=== PATIENT | male | born 1935 | race Caucasian/White ===

== ENCOUNTER → 2016-10-24 | Outpatient (CLI) | payer MEDICARE, BC ==
[~2016-10-24] MED LIST: 0.9% SODIUM CHLO3 ML; ALBUTEROL2.5 MG/0.5 INH; B-COMPLEX PO; BYSTOLIC5 MG PO; CARDURA2 MG PO; COQ-10100 MG PO; COUMADIN ** IA5 MG PO; COUMADIN**IA 06/5 MG PO; COUMADIN7.5 MG PO; CPAP INH; CREON 121 CAP PO; CUBICIN (NON-F500 MG IV/PO; D3-20002000 UNIT PO; DIGESTIVE PROB1 EACH PO; DULERA 200 MCG/51 EA INH; FISH OIL 1,2001 EAC2 PO; FLAREX5 ML OPHTH; FOLIC ACID 40400 MCG PO; K-TAB 10MEQ10 MEQ PO; K-TAB ER20 MEQ PO; LASIX20 MG PO; LEVOTHROID (S200 MCG PO; LIPITOR80 MG PO; LUMIGAN 0.01%2.5 ML OPHTH; LUTEIN-ZEAXANT1 EACH PO; MAXI TEARS OPHTH; MUCINEX600 MG PO; OCUVITE SOFTGE1 EACH PO; OXYGEN M-15 INH; PANCRELIPASE D1 EACH PO; PANCRELIPASE PO; PLAVIX75 MG PO; PROAIR RESPICL90 MCG INH; PROTONIX40 MG PO; PROVENTIL2.5 MG/0.5 INH; ROCEPHIN2 G1 IV; SPIRIVA HANDIHA1 KIT INH; STOP INH; SYMBICORT 16010.2 GM INH; THERAGRAN-M1 TAB PO; VITAMIN C500 M2 PO; [UNRECOGNIZED DRUG - OTHER] OPHTH
[2016-10-24 12:55] LABS: BASOPHIL # 0.1 K/uL (0.0-0.2); BASOPHIL % 1.1 %; EOSINOPHIL # 0.1 K/uL (0.0-0.5); HEMATOCRIT 39.2 % (37.0-53.0); HEMOGLOBIN 12.8 g/dL (11.0-16.0); IMMATURE GRANULOCYTE % 0.4 %; LYMPHOCYTE # 0.7 K/uL (0.8-4.0); LYMPHOCYTE % 15.5 %; MCHC 32.7 gm/dL (32.0-36.5); MCV 94.9 fl (83.0-98.0); MONOCYTE # 0.5 K/uL (0.0-1.0); MONOCYTE % 10.2 %; MPV 9.2 fl (9.4-12.4); NEUTROPHIL # (ANC) 3.2 K/uL (1.4-9.0); NEUTROPHIL % 70.8 %; NRBC % 0 /100WBC (0-0.00); PLATELET COUNT 665 K/uL (150-450); RBC 4.13 M/uL (3.50-5.50); RDW-CV 15.8 % (11.9-14.6); WBC 4.5 K/uL (4.0-11.0)
[2016-10-24 13:12] LABS: ALBUMIN 3.3 gm/dL (3.5-5.0); ANION GAP 9.9 (10.0-19.0); CALCIUM 7.8 mg/dL (8.5-10.5); CREATININE 0.8 mg/dL (0.6-1.3); POTASSIUM 3.9 mMol/L (3.7-5.1); TOTAL BILIRUBIN 0.4 mg/dL (0.0-1.5); TOTAL PROTEIN 6.5 g/dL (6.0-8.4)
== END | disposition disaster alternative care site (69) ==
LOC: LNHI 12:37
PROVIDERS: Internal Medicine Cardiovascular Disease
DX: I48.0 Paroxysmal atrial fibrillation (principal)

== ENCOUNTER 2016-11-02 05:19 | Inpatient (IN) | payer MEDICARE, BC ==
[~2016-11-02] VITALS: Ht 177.8 cm; Wt 124.8 kg
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
--- NOTE | ~2016-11-02 | DS ---
PATIENT'S NAME: KALI KIDD [facility] AGE: 81 Y [address] ROOM: [id number], [place] [address] LOCATION: [facility] ADMIT DATE: 11/02/2016 Discharge Summary DISCHARGE DATE: 11/06/2016 FAMILY PHYSICIAN: Physician, Unknown ATTENDING PHYSICIAN: Carson Knight REASON FOR ADMISSION: Chills, history of recurrent bacteremia and concern for same. ADMISSION DIAGNOSIS: Escherichia coli bacteremia. SECONDARY DIAGNOSES: 1. Left lower extremity cellulitis, presumable Staph aureus. 2. Acute urinary retention. 3. Chronic obstructive pulmonary disease. 4. Obstructive sleep apnea, on 2 L home oxygen at night. 5. Atrial fibrillation, anticoagulated. 6. History of deep venous thrombosis, pulmonary embolism. 7. Insulin-dependent diabetes type 2. 8. History of pancreatic mass, status post Whipple. 9. Essential hypertension. 10. Hypothyroidism. 11. 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 PENDING LABS AND TESTS: At the time of discharge, final culture results from [facility], sensitivities pending on E. coli at the time of discharge as well as weekly CMP while on ceftriaxone to follow up with PCP. HOSPITAL COURSE: This is a very pleasant 81-year-old male with notable history for multiple recent episodes of bacteremia and occasionally involving heart valves, status post 3 episodes of long-term antibiotics within the past 3 years, who presented to his outside hospital with complaints of chills and concern for yet another episode of bacteremia/endocarditis. Blood cultures were drawn at an outside facility, and the patient was started on antibiotics prior to being transferred to [facility]. This was after having presented to the ER and found to have blood pressures low in the 80s with heart rates in the 110s consistent with sepsis. He was given vancomycin, Zosyn, and Levaquin as well as IV fluid bolus prior to transfer here. Upon arrival, the patient from a hemodynamic standpoint was markedly improved with normotensive range blood pressures and improved tachycardia. Initial lactate 1.7, white count is 19.9. Further infectious workup did note chest x-ray without significant consolidation. Urinalysis also was largely unremarkable. Repeat blood cultures were drawn here, and remained no growth to date. On November 06, 2016, we received notification that the patient had developed PATIENT'S NAME: KALI KIDD [facility] AGE: 81 Y [address] [place]: [id number] [address] LOCATION: [facility] ADMIT DATE: 11/02/2016 Discharge Summary DISCHARGE DATE: 11/06/2016 FAMILY PHYSICIAN: Physician, Unknown ATTENDING PHYSICIAN: Carson Knight positive blood cultures for gram-negative rods and subsequently E. coli, which prompted ID consultation. The patient had been maintained on linezolid largely for concern of history of MRSA for left lower extremity cellulitis, which up until the time of positive blood cultures was deemed to be the sole responsible reason for sepsis. However, this rapidly improved within one day of hospital stay. There was no associated warmth or redness, and this was deemed to be fully treated at the time of discharge. Linezolid was discontinued on at request of Infectious Diseases in favor of ceftriaxone 2 g IV q.24 hours to be continued for 2 weeks for bacteremia. The patient did undergo transthoracic echocardiogram during his stay, which did not show any acute valvular abnormalities or regurgitation, however, this was notably a difficult study. Given the E. coli in blood stream and not atypical bacteria for valvular involvement, a transesophageal echo was not requested. Remainder of chronic medical conditions largely without complication during stay including COPD, atrial fibrillation, diabetes, and hypertension. Of note, the patient did require Dela Cruz briefly for urinary retention, which had improved at the time of discharge, but may warrant further evaluation by PCP upon followup. No obvious source of E. coli bacteremia was identified, however, must raise concern for GI source especially given history of Whipple procedure. There was no evidence of intraabdominal infection by exam or ongoing systemic infection by lab parameters, so this was not aggressively pursued during stay. However, if recurrence of sepsis does occur, we would recommend a CT abdomen to rule out abscess or other anatomical predisposition for E. coli bacteremia. MEDICATIONS AND PERTINENT CHANGES: Only notable for addition of ceftriaxone. FINGERNAIL SCULPTURER: Dr. Wright with ID. CONDITION: On the date of discharge, last vital signs prior to discharge, temperature 97.6, pulse 60, respirations 20, blood pressure 159/69, saturating 95% on room air. PHYSICAL EXAM ON DATE OF DISCHARGE: Please see last progress note, however, is notable for complete resolution of warmth and redness around the site of presumed cellulitis of left lateral lower extremity and absence of heart murmur. DISPOSITION: The patient will be discharged home to follow up with daily IV infusion of antibiotics at his home hospital for the following 2 weeks. No restrictions on diet or activity. Time spent on date of discharge including direct patient care and coordination of discharge activities 40 minutes. PATIENT'S NAME: KALI KIDD [facility] AGE: 81 Y [address] ROOM: [place] [address] LOCATION: [facility] ADMIT DATE: 11/02/2016 Discharge Summary DISCHARGE DATE: 11/06/2016 FAMILY PHYSICIAN: Physician, Unknown ATTENDING PHYSICIAN: Carson Knight MD DWAIN RUANO/modl /[id number] d: 11/07/16 0228 t: 11/07/16 1104, DISCHARGE SUMMARY
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
--- NOTE | ~2016-11-02 | ECHO ---
Transthoracic Echocardiography Report (TTE) Demographics Patient Name KALI KIDD Date of Study 11/03/2016 Patient Number [id number] Visit Number [id number] Date of 1935 Room Number Q7613XD Accession Number [id number] Gender Male Age 81 year(s) Referring Rick Whyte Insole And Outsole Preparer Viktoriya Dewey RVT Physician MD Antonia Staton MD Physician [facility] Phys[facility] Shira LIM Supervising Ordering Physician Rick Whyte MD/MATT LIM Nurse Stress Datapower Developer Conclusions Contractility Score Summary Normal Left Ventricular contractility was noted. Summary The estimated left ventricular ejection fraction is 60-65% with normal internal dimension and WM.Mild concentric left ventricular hypertrophy. Mild LA dilatation. Mildly dilated right ventricle. The right atrium is mildly dilated. Moderate to severe calcification of the mitral valve. Trivial mitral regurgitation by color Doppler. The aortic valve was not well imaged. The aortic valve is mildly sclerotic. Procedure Type of Study TTE procedure:2D Echocardiogram. Procedure Date Date: 11/03/2016 Start: 12:26 PM Study Location: Inpatient Portable Technical Quality: Limited visualization due to poor acoustical window. Additional Indications:rule out vegetation Appropriate Use Criteria: 9 Patient Status: Routine HR: 72 bpm BP: 176/88 mmHg Allergies - Other:(Sulfa, Trimethoprim). M-Mode/2D Measurements LV Diastolic Dimension: 4.21 cm LV Systolic Dimension: 2.94 cm LV Septum Diastolic: 1.39 cm LV PW Diastolic: 1.45 cm AO Root Dimension: 2.8 cm Cardiac Output: 4.82 l/min AV Cusp Separation: 2 cm LVOT: 2 cm RV Base: 3.31 cm LVOT VTI: 21.3 cm RV Mid: 3.56 cm LV Stroke volume: 66.88 ml TAPSE: 1.63 cm TDI-S': 14.1 cm/s Doppler Measurements AV Peak Velocity: 2.08 m/s MV Peak E-Wave: 1.32 m/s AV Peak Gradient: 17.31 mmHg MV Peak A-Wave: 1.57 m/s AV Mean Gradient: 8 mmHg MV E/A Ratio: 0.84 LVOT Peak Velocity: 1.11 m/s MV P1/2t: 76 msec PV Peak Velocity: 1.02 m/s E' Septal Velocity: 0.06 m/s PV Peak Gradient: 4.16 mmHg E' Lateral Velocity: 0.08 m/s A' Septal Velocity: 0.09 m/s A' Lateral Velocity: 0.12 m/s Findings Left Ventricle Mild concentric left ventricular hypertrophy with normal internal dimension,EF and WM. Right Ventricle Mildly dilated right ventricle with normal function. Left Atrium Mildly dilated LA. Increased LA pressures. Right Atrium The right atrium is mildly dilated. IVC measures 1.52 cm with inspiratory collapse. Mitral Valve Moderate to severe calcification of the mitral valve. Trivial mitral regurgitation by color Doppler. Aortic Valve The aortic valve was not well imaged. The aortic valve is mildly sclerotic. Tricuspid Valve Normal tricuspid valve structure and function. Pulmonic Valve Normal pulmonic valve structure and function. Pericardial Effusion No evidence of pericardial effusion. Miscellaneous Visualized portions of the aortic root and ascending aorta appear normal in size. Pleural Effusion No evidence of pleural effusion. Contractility Score LV regional wall motion:(0-Non visualized 1-Normal 2-Hypokinesis 3-Akinesis 4-Dyskinesis 5-Aneurysm) Signature dtt: Shira Arias dtd: 11/03/16 1226 Physician Self Edit
--- NOTE | ~2016-11-02 | CON ---
PATIENT'S NAME: GLYNN KIDD [facility] AGE: 81 Y [address] ROOM: [place] [address] LOCATION: GICU ADMIT DATE: 11/02/2016 Consultation DISCHARGE DATE: 11/06/2016 FAMILY PHYSICIAN: Physician, Unknown ATTENDING PHYSICIAN: Carson Knight DATE OF CONSULTATION: 11/06/2016 REASON FOR CONSULTATION: Recurrent bacteremias. SUBJECTIVE: Glynn is a pleasant 81-year-old male, whom I was asked to see today in consultation by Dr. Carson Knight for further evaluation and treatment recommendations regarding recurrent bacteremia. Interestingly, I saw Glynn back in 2014 for bacteremia with an enterococcus species. He was noted to have had prior bacteremias with E coli, presumably from a urinary tract infection. Since that time, he has had 2 more episodes of bacteremia, I believe with E coli, though the originating source was unknown. He was treated for these in [place]. One day prior to admission, he had onset of fever and chills and was admitted from the emergency room in [place]. Blood cultures in [place] show E coli from both sets, susceptibilities pending. Cultures here have been negative. He showed some signs of sepsis here on admission, but improved rapidly. He was initially on intravenous vancomycin, Zosyn, and levofloxacin. 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 At the time of his previous infection for which I treated him, he did have significant elevation of liver enzymes, and this was felt to be likely due to cholangitis. His current liver enzyme pattern is unremarkable. Also of note, he did have some minor trauma to his left anterior tibial area. It was reportedly erythematous prior to admission, but it has improved. PAST MEDICAL HISTORY: As above, also type 2 diabetes, COPD, hypertension, hypothyroidism, obstructive sleep apnea, prior DVT and pulmonary embolism, atrial fibrillation, and possible endocarditis in 2014. ALLERGIES: BACTRIM. CURRENT MEDICATIONS: PATIENT'S NAME: GLYNN KIDD [facility] AGE: 81 Y [address] ROOM: [place] [address] LOCATION: GICU ADMIT DATE: 11/02/2016 Consultation DISCHARGE DATE: 11/06/2016 FAMILY PHYSICIAN: Physician, Unknown ATTENDING PHYSICIAN: Carson Knight See the MAR for complete listing. Current antibiotic is linezolid. SOCIAL HISTORY: He is a former smoker and stopped many years ago. No significant alcohol abuse. FAMILY HISTORY: Significant for COPD and colon cancer. REVIEW OF SYSTEMS: A complete review of systems was carried out and was remarkable only as noted. Please refer to the admission history and physical on 11/02/2016 for details. OBJECTIVE: GENERAL: He appears pleasant, comfortable, and is in no distress. VITAL SIGNS: Temperature is 36.4, blood pressure 166/73, and pulse 65. HEENT: Posterior pharynx clear. No adenopathy or thyromegaly. Cranial nerves are intact. NECK: Supple. CHEST: Clear to auscultation. CARDIOVASCULAR: Irregular rhythm without S3 or murmur. ABDOMEN: Soft and nontender, without hepatosplenomegaly or masses. EXTREMITIES: There is a very minor abrasion in the left anterior tibial area without an open wound. NEUROLOGIC: Strength and sensation intact. PSYCHIATRIC: Behavior and affect appropriate. LABORATORY DATA: Creatinine 0.7. Liver function tests normal. White count 6.7. MICROBIOLOGY: Blood cultures x2 from [place] on 11/02/2016 show E coli, both sets. Blood cultures x2 here show no growth to date. Urine culture on 11/02/2016 shows no growth to date. Left leg swab shows methicillin-susceptible Staphylococcus aureus. RADIOLOGY: Chest x-ray on 11/02/2016 shows no acute findings. IMPRESSION: Recurrent bacteremias, generally with gram-negative bacteria, but Enterococcus casseliflavus on one occasion with a question of endocarditis. Please refer to my notes from that consult for further details. The origin of his current bacteremia is unclear. He did have 5 to 10 white cells on urinalysis here, but did not have urinary symptoms. He had a rather traumatic attempt at PATIENT'S NAME: GLYNN KIDD [facility] AGE: 81 Y [address] [id number] [id number] LOCATION: [facility] ADMIT DATE: 11/02/2016 Consultation DISCHARGE DATE: 11/06/2016 FAMILY PHYSICIAN: Physician, Unknown ATTENDING PHYSICIAN: Carson Knight catheterization prior to transfer here, apparently. There is also the possibility of cholangitis, which was suggested by liver enzyme elevations in 2015. His liver enzymes here are normal, however. With his prior Whipple procedure, this is a distinct possibility. In any event, as he has had about 6 or possibly more episodes of serious bacteremia, I think it is reasonable to consider going on chronic long-term antibiotic prophylaxis. Depending upon the susceptibilities of the current E coli, which are pending, I would consider either amoxicillin or cefadroxil. He does have a sulfa allergy, it should be noted. He could take amoxicillin 875 mg daily or cefadroxil 500 mg daily for chronic suppression. We will stop linezolid at this time and transition over to ceftriaxone. This may need to be adjusted if the organism is not sensitive. We can see him back on a p.r.n. basis at any time. Thank you for the consultation. I am available to discuss the case by phone at [phone]. MD SNOW FARIA/filomena /[id number] CC: Carson Knight MD d: 11/06/16 1850 t: 11/07/16 0834, CONSULTATION REPORT
[~2016-11-02 05:19] MED LIST changes: -COQ-10100 MG PO; -CREON 121 CAP PO; -DIGESTIVE PROB1 EACH PO; -MAXI TEARS OPHTH; -PANCRELIPASE PO; -PLAVIX75 MG PO; -ROCEPHIN2 G1 IV; -[UNRECOGNIZED DRUG - OTHER] OPHTH
[2016-11-02 07:18] LABS: BICARBONATE 29.6 mmol/L (18.0-23.0); PCO2 50 mmHg (35-45); PO2 73 mmHg (80-90)
--- NOTE | 2016-11-02 07:22 | NUR ---
PATIENT ARRIVED TO UNIT AT 0600 PER CART BY JUAN RAMON WITH AT BEDSIDE. PRESENTED TO THE [facility] WIHT C/O CHILLS THEN HOT AND SHAKES. WHILE AT FACILITY PATIENTS TEMP INCREASED TO 103.3-TYLENOL GIVEN. HISTORY OF HTN, COPD, AND SEPSIS OF UNKNOWN ORIGIN. PATIENT WAS SHORT OF BREATH ON ARRIVAL-2L OF O2 PER NC. LEVO, ZOSYN, AND VANCO GIVEN AT [facility]. STOOD WITH 1A AND GB. HYPOTENSIVE. OUTSIDE FACILITY ATTEMPTED CRYSTAL CATH UNABLE TO PLACE-DOES HAVE BLOOD CLOTS AND LIGHT LEYDA URINE. SOB- 0/10-72-95% 2L- 97.9 (O)-98/56 MAP 76. BRENNAN TERAN
[2016-11-02 07:41] LABS: HEMATOCRIT 38.4 % (37.0-53.0); HEMOGLOBIN 12.4 g/dL (11.0-16.0); MCH 30.9 pg (27.0-34.0); MCHC 32.3 gm/dL (32.0-36.5); MCV 95.8 fl (83.0-98.0); PLATELET COUNT 766 K/uL (150-450); RBC 4.01 M/uL (3.50-5.50); RDW-CV 15.9 % (11.9-14.6); WBC 19.9 K/uL (4.0-11.0)
[2016-11-02 08:01] LABS: ANION GAP 11.2 (10.0-19.0); CALCIUM 7.7 mg/dL (8.5-10.5); POTASSIUM 4.2 mMol/L (3.7-5.1); TOTAL PROTEIN 6.4 g/dL (6.0-8.4)
[2016-11-02 08:02] LABS: TOTAL BILIRUBIN 0.6 mg/dL (0.0-1.5)
[2016-11-02 08:05] LABS: ABSOLUTE NEUTROPHIL CT (ANC) 18.3 K/uL (1.4-9.0); BANDED NEUTROPHIL # 3.4 K/uL (0.0-0.1); BANDED NEUTROPHILS % 17 %; LYMPHOCYTE # 0.6 K/uL (0.8-4.0); LYMPHOCYTE % 3 %; MONOCYTE # 0.8 K/uL (0.0-1.0); SEGMENTED NEUTROPHIL # 14.9 K/uL (1.4-9.0); SEGMENTED NEUTROPHIL % 75 %
[2016-11-02 08:43] LABS: INR - (THERAPEUTIC) 2.72 (0.92-1.07); PROTIME 28.9 SECONDS (9.8-11.4)
[2016-11-02 08:45] LABS: BILIRUBIN URINE NEGATIVE (NEGATIVE); BLOOD URINE 250 /UL (NEGATIVE); COLOR URINE YELLOW (YELLOW); GLUCOSE URINE NEGATIVE (NEGATIVE); KETONE URINE NEGATIVE (NEGATIVE); LEUKOCYTES URINE 100 /UL (NEGATIVE); NITRITE URINE NEGATIVE (NEGATIVE); PROTEIN URINE 30 mg/dL (NEGATIVE); SPEC GRAVITY URINE 1.015 (1.003-1.035); TURBIDITY URINE 3+ (CLEAR); UROBILINOGEN URINE NORMAL (NORMAL)
[2016-11-02 09:27] LABS: BACTERIA URINE FEW (NEGATIVE); EPITHELIAL URINE 0-2 #/HPF (NEGATIVE); RBC URINE FULL FIELD #/HPF (NEGATIVE)
[2016-11-02] MEDS ORDERED: BYSTOLIC5 MG PO (11:54)
[2016-11-02] MEDS ORDERED: PLAVIX75 MG PO (11:56)
[2016-11-02] MEDS ORDERED: COQ-10100 MG PO (11:57)
[2016-11-02] MEDS ORDERED: DIGESTIVE PROB1 EACH PO (12:00)
[2016-11-02] MEDS ORDERED: [UNRECOGNIZED DRUG - OTHER] OPHTH (12:08)
[2016-11-02] MEDS ORDERED: MAXI TEARS OPHTH (12:15)
--- NOTE | 2016-11-02 17:10 | NUR ---
Significant Event: A&O. VSS, AFEBRILE, ON 1L O2. SATS MID-HIGH 90'S BUT FEELS SHORT OF BREATH. AUDIBLE UPPER AIRWAY WHEEZE. OFF LEVOPHED. NS AT 75 ML/HR TO L)FA. R)FA SL. COMPLAINT OF PAINFUL URINATION, REPORT OF 4 ATTEMPTS AT CATHETER INSERTION AT OUTSIDE FACILITY. VOIDING SMALL AMOUNTS, BLADDER SCAN SHOWED 461 ML. 2 BOWEL MOVEMENTS. ACCUCHEK ACHS WITH CARB COUNT.
--- NOTE | 2016-11-03 05:14 | NUR ---
Significant Event: Patient this shift has been alert and oriented x3. Follows commands. PERRLA. Equal strong strength. VSS. Afebrile. Denies HOOD, n/t, or BV. SB-SR-keep map > 65. BLE pulses are thready- 2+ edema. 1L O2 per NC. CPAP at NOC. ADA diet-with carb count- ACCU checks ACHS. Last BM 11/02-active. ABD is round/distended-normal. 1A GB. Drsg to left forehead-C/D/I. Left medial johnson-open sore-covered with band-aid. L) and R) PIV- NS and IV antibiotics. Follow up: Eye gtts from . Change to NTU status?
[2016-11-03 05:30] LABS: BASOPHIL # 0.1 K/uL (0.0-0.2); BASOPHIL % 0.7 %; EOSINOPHIL # 0.2 K/uL (0.0-0.5); EOSINOPHIL % 1.8 %; HEMATOCRIT 37.4 % (37.0-53.0); HEMOGLOBIN 11.8 g/dL (11.0-16.0); IMMATURE GRANULOCYTE # 0.1 K/uL (0.0-0.3); IMMATURE GRANULOCYTE % 0.6 %; LYMPHOCYTE # 0.9 K/uL (0.8-4.0); MCH 30.2 pg (27.0-34.0); MCHC 31.6 gm/dL (32.0-36.5); MCV 95.7 fl (83.0-98.0); MONOCYTE # 0.8 K/uL (0.0-1.0); MONOCYTE % 7.2 %; MPV 8.9 fl (9.4-12.4); NEUTROPHIL # (ANC) 8.5 K/uL (1.4-9.0); NEUTROPHIL % 80.7 %; NRBC % 0 /100WBC (0-0.00); PLATELET COUNT 631 K/uL (150-450); RBC 3.91 M/uL (3.50-5.50); RDW-CV 16.3 % (11.9-14.6); WBC 10.5 K/uL (4.0-11.0)
[2016-11-03 05:46] LABS: INR - (THERAPEUTIC) 3.08 (0.92-1.07); PROTIME 32.7 SECONDS (9.8-11.4)
[2016-11-03 05:48] LABS: ANION GAP 10.8 (10.0-19.0); CALCIUM 7.7 mg/dL (8.5-10.5); CREATININE 0.8 mg/dL (0.6-1.3); POTASSIUM 3.8 mMol/L (3.7-5.1); TOTAL BILIRUBIN 0.6 mg/dL (0.0-1.5); TOTAL PROTEIN 6.3 g/dL (6.0-8.4)
[2016-11-03 09:25] LABS: INR - (THERAPEUTIC) 3.09 (0.92-1.07); PROTIME 32.8 SECONDS (9.8-11.4)
--- NOTE | 2016-11-03 19:23 | NUR ---
Significant Event: PT A&Ox3, FAC, PEREZ. VSS with the exception of elevated pressures, HR, and bigeminal PVCs prior to urinary catheterization. PT c/o fullness, tension, and pain in the lower abdomen. A 16Fr indwelling mcdonough was inserted; 3725mL out. SBP 140-200; HR 70s-90s. Follow up: Continue monitoring urine output and vital signs.
--- NOTE | 2016-11-03 22:27 | NUR ---
Significant Event: Patient alert and oriented x3. Up with one assist and gaitbelt. Ambulated in halls. Dyspenic on exertion and requested 1 liter oxygen to be placed. Other vitals stable, afebrile. Sinus rhythm with bundle branch block. Edema to bilateral lower extremities. Bandaid changed to small open area on left anterior leg. Antibiotics running through left forearm IV with no complications. Dela Cruz. Pleasant/cooperative with cares Follow up: remind to bring in advanced directive
--- NOTE | 2016-11-04 04:46 | NUR ---
Significant Event: Patient is alert and oriented X3. Follows commands. PERRLA. VSS. Afebrile. Denies HOOD, N/T, or pain. Equal strong strength throughout. SB-SR with BBB. Pulses are thready BLE- 2+ edema. 1-2L O2 per NC or CPAP. Diabetic diet with carb counting. Takes pills whole with water. Last BM 8/-active x4- does belch when up and walking. 1A with GB. Dela Cruz cath in place-1125 out/clear-does have drainage from the urethra and is tender. Band-aid to the left forehead and left johnson- C/D/I. L)FA PIV- infusing zosyn. Follow up: Continue to monitor.
[2016-11-04 06:24] LABS: BASOPHIL # 0.1 K/uL (0.0-0.2); BASOPHIL % 0.9 %; EOSINOPHIL # 0.2 K/uL (0.0-0.5); EOSINOPHIL % 2.8 %; HEMATOCRIT 38.2 % (37.0-53.0); HEMOGLOBIN 12.6 g/dL (11.0-16.0); IMMATURE GRANULOCYTE % 0.5 %; LYMPHOCYTE # 0.7 K/uL (0.8-4.0); LYMPHOCYTE % 8.7 %; MCH 30.9 pg (27.0-34.0); MCV 93.6 fl (83.0-98.0); MONOCYTE # 0.7 K/uL (0.0-1.0); MONOCYTE % 8.6 %; MPV 9.1 fl (9.4-12.4); NEUTROPHIL # (ANC) 6.7 K/uL (1.4-9.0); NEUTROPHIL % 78.5 %; NRBC % 0 /100WBC (0-0.00); PLATELET COUNT 648 K/uL (150-450); RBC 4.08 M/uL (3.50-5.50); WBC 8.5 K/uL (4.0-11.0)
[2016-11-04 06:33] LABS: INR - (THERAPEUTIC) 3.85 (0.92-1.07)
[2016-11-04 06:36] LABS: CALCIUM 8.1 mg/dL (8.5-10.5); CREATININE 0.7 mg/dL (0.6-1.3)
[2016-11-04 09:35] LABS: INR - (THERAPEUTIC) 3.8 (0.92-1.07); PROTIME 40.4 SECONDS (9.8-11.4)
--- NOTE | 2016-11-04 13:43 | NUR ---
Significant Event: VSS. PATIENT A/O X 3. FOLLOWS COMMANDS. MODERATE STRENGTH. LUNGS CLEAR AND DIM, ON ROOM AIR. WEARS CPAP AT NIGHT. 2+ EDEMA IN LOWER EXTREMITIES. THREADY PULSES. DENIES PAIN SO FAR THIS SHIFT. IV IN RT FOREARM SALINE LOCKED, INTERMITTENT ANTIBIOTICS. UP WITH STANBY ASSIST AND GAITBELT. ACCUCHECKS DC'D THIS SHIFT. CRYSTAL DRAINING YELLOW URINE, TO BE DC'D IN AM AND POST VOID RESIDUALS CHECKED. AWAITING ECHO RESULTS, CALL TO DR CROWELL. Follow up: [facility]. ANTBIOTICS.
--- NOTE | 2016-11-04 18:01 | NUR ---
Introduced self and role of care management to patient and his . They live in [place]. They plan on him going home when ready for discharge. At this time they do not anticipate discharge needs. Will follow.
--- NOTE | 2016-11-05 03:39 | NUR ---
Significant Event:Patient alert and ox3. Up with 1 assist/gb. No c/o pain. Moves all extremeties to command and spontaneously. PIV to left forearm saline locked between IV ATB's. Edema to bilater lower extremeties, pitting. left johnson is slightly reddened. Ambulated in halls this shift. Bradycardiac at times with hr in the 50's. Dela Cruz patent with yellow urine, plan to d/c at 0500. Abdomen rounded and slightly firm, pt did have bm on previous shift and this shift. Follow up:Continue IV ATB, Blood culture from [facility] pending.
[2016-11-05 05:51] LABS: BASOPHIL # 0.1 K/uL (0.0-0.2); EOSINOPHIL # 0.2 K/uL (0.0-0.5); EOSINOPHIL % 3.3 %; HEMATOCRIT 36.8 % (37.0-53.0); HEMOGLOBIN 12.2 g/dL (11.0-16.0); IMMATURE GRANULOCYTE % 0.3 %; LYMPHOCYTE # 0.9 K/uL (0.8-4.0); LYMPHOCYTE % 12.8 %; MCH 31.1 pg (27.0-34.0); MCHC 33.2 gm/dL (32.0-36.5); MCV 93.9 fl (83.0-98.0); MONOCYTE # 0.5 K/uL (0.0-1.0); MONOCYTE % 7.9 %; NEUTROPHIL % 74.7 %; NRBC % 0 /100WBC (0-0.00); PLATELET COUNT 652 K/uL (150-450); RBC 3.92 M/uL (3.50-5.50); RDW-CV 15.9 % (11.9-14.6); WBC 6.7 K/uL (4.0-11.0)
[2016-11-05 05:56] LABS: INR - (THERAPEUTIC) 3.46 (0.92-1.07); PROTIME 36.8 SECONDS (9.8-11.4)
[2016-11-05 06:07] LABS: ANION GAP 10.2 (10.0-19.0); CALCIUM 8.5 mg/dL (8.5-10.5); CREATININE 0.7 mg/dL (0.6-1.3); POTASSIUM 4.2 mMol/L (3.7-5.1)
--- NOTE | 2016-11-05 15:53 | NUR ---
Significant Event: Patient alert and oriented x3. No neuro deficits. VSS, on room air. Refuses SCD's. 3+ edema to lower legs. Wears home CPAP. Voids per urinal/bathroom. L) johnson sore, possible source of infection? WOC consulted. IV to L) FA, saline locked with intermittent antibiotics. Follow up:
--- NOTE | 2016-11-06 04:14 | NUR ---
Significant Event: AOX3. NO NEURO DEFICITS NOTED. VSS ON RA. 3+ EDEMA TO LOWER EXTREMITIES. REFUSES SCDs, ELEVATE LEGS AT ALL TIMES. WEARS HOME CPAP AT NIGHT. VOIDS PER URINAL/BATHROOM. 1 ASSIST WITH GAITBELT. BMx2 THIS SHIFT. IV TO L)FA SL. AREA TO L)BRYANT, COVERED WITH MEPILEX DRSG. C/D/I. DENIES PAIN THIS SHIFT. Follow up: POSSIBLE SUGAR TODAY?
[2016-11-06 06:23] LABS: INR - (THERAPEUTIC) 2.08 (0.92-1.07)
--- NOTE | 2016-11-06 14:59 | NUR ---
Notified patient will be need 2 weeks OP IV ATBs and would like to do it at the [facility]. Patient will be on Rocephin 2 gms IV qd. Called and talked with Marian at [facility] OP services in [place]. They would like patient to come tomorrow at 1400 for his IV ATBs. Talked with patient and discussed plans and he is in agreement with the arrangements. Says his will come up when she gets off work today to take him home. Will fax orders and information to Marian at [facility]. Denies any other discharge needs at this time.
[2016-11-06] MEDS ORDERED: ROCEPHIN2 G1 IV (15:59)
[2016-11-06] MEDS ORDERED: PANCRELIPASE PO (16:39)
[2016-11-06] MEDS ORDERED: CREON 121 CAP PO (16:47)
--- NOTE | 2016-11-06 17:14 | NUR ---
Patient is alert and oriented times three. PERRLA. CSM intact. Patient moves all extremities spontaneously and on command. Equal strength noted throughout. VSS on room air. Lungs clear and diminished throughout. Bowel sounds active. Small bm this shift. Patient voids per the urinal without difficulty. Mepilex dressing to LLE, tubigrip to be on in am and off at pm. Gauze dressing applied to left upper extremity today for a skin tear. + Blood cultures received from [facility] today that showed E. Coli. Rocephin 2gm IV qday started this shift. Patient will go to [facility] services on 11/07 at 1400 for IV antibiotics. Patient will to go [facility] on Saturday 11/11 for outpatient physical therapy at 0845. Patient will follow up with Dr. Hardy in 1 week and have weekly CMP labs drawn while on the IV antibiotics. Dressing to patients left head changed this shift with vaseline gauze and a bandaid. No c/o pain. Patient takes medications whole without difficulty.
== END 2016-11-06 17:56 | disposition disaster alternative care site (69) | DRG 871 ==
LOC: GICU 05:55
PROVIDERS: Internal Medicine; ADMIT Internal Medicine
PROC: B246ZZZ Ultrasonography of Right and Left Heart (ICD-10-PCS; 2016-11-03)
PROC: B54MZZA Ultrasonography of Right Upper Extremity Veins, Guidance (ICD-10-PCS; principal; 2016-11-06)
PROC: 05HB33Z Insertion of Infusion Device into Right Basilic Vein, Percutaneous Approach (ICD-10-PCS; principal; 2016-11-06)
DX: A41.01 Sepsis due to Methicillin susceptible Staphylococcus aureus (principal); R65.21 Severe sepsis with septic shock; I48.0 Paroxysmal atrial fibrillation; Z99.81 Dependence on supplemental oxygen; L03.116 Cellulitis of left lower limb; J44.9 Chronic obstructive pulmonary disease, unspecified; A41.51 Sepsis due to Escherichia coli [E. coli]; E11.9 Type 2 diabetes mellitus without complications; G47.33 Obstructive sleep apnea (adult) (pediatric); I10 Essential (primary) hypertension; R33.8 Other retention of urine; R00.0 Tachycardia, unspecified; Z79.01 Long term (current) use of anticoagulants; Z90.49 Acquired absence of other specified parts of digestive tract; Z90.411 Acquired partial absence of pancreas; B95.61 Methicillin susceptible Staphylococcus aureus infection as the cause of diseases classified elsewhere; Z79.4 Long term (current) use of insulin; Z86.718 Personal history of other venous thrombosis and embolism; Z86.711 Personal history of pulmonary embolism
CPT/HCPCS: C1751; J0696; J1940; J2020; J2543; J7030; J7040; J7050; J7060